=== PATIENT | female | born 1985 | race Caucasian/White ===

== ENCOUNTER 2022-06-08 08:45 | Outpatient (CLI) | payer OTHER, SELFPAY ==
[2022-06-08 11:58] LABS: AST(SGOT) 14 U/L (15-37); Alanine Aminotransfer ALT/SGPT 23 U/L (13-56); Albumin, Serum 3.7 g/dL (3.2-5.0); Alkaline Phosphatase 72 U/L (45-117); Anion Gap 8 (5-15); BUN 13 mg/dL (7-18); BUN/Creat Ratio 16.4 RATIO (10-20); Chloride 106 mmol/L (98-107); Creatinine, Serum 0.79 mg/dL (0.55-1.02); EST Glomerular Filtration Rate 87 mL/min (>60); Est Glom Filt Rate - Afr Amer 106 mL/min (>60); Globulin 3.8 g/dL (2.2-4.2); Glucose 124 mg/dL (74-106); Luteinizing Hormone 6.7 mIU/mL; Potassium 4.1 mmol/L (3.5-5.1); Protein, Total 7.5 g/dL (6.4-8.2); Sodium Level 140 mmol/L (136-145); Thyroid Stim Hormone (TSH) 0.71 uIU/mL (0.358-3.74)
== END 2022-06-08 23:59 | disposition home or self-care (01) ==
LOC: MTLAB 08:49
PROVIDERS: PCP Family Medicine; Referring Provider Family Medicine; Visit Provider Family Medicine
DX: N92.6 Irregular menstruation, unspecified (principal)
CPT/HCPCS: 36415; 80053; 82533; 82627; 83001; 83002; 84403; 84443; 82626

== ENCOUNTER → 2022-06-30 | Outpatient (CLI) | payer OTHER, SELFPAY ==
--- NOTE | 2022-06-30 11:16 | US_ITS ---
INDICATION: IRREGULAR PERIODS EXAMINATION: Ultrasound US Transvaginal Non-OB TECHNIQUE: Transvaginal (for optimal evaluation of the adnexa) pelvic ultrasound was performed. Grayscale, spectral waveform, and color flow Doppler evaluation of the adnexa. COMPARISON: None. FINDINGS: UTERUS: Anteverted. The uterus measures 7.4 x 4.0 x 3.1 cm. There is a possible anterior fibroid measuring 2.5 x 2.1 x 1.8 cm. The endometrial stripe measures 9.5 mm with mild heterogeneity. A lobulated masslike structure is noted in the cervical canal measuring 9 x 11 x 8 mm. RIGHT OVARY: 5.4 x 4.7 x 5.5 cm. There are cystic lesions measuring 2.8 x 3.1 x 2.2 cm with septations and 4.4 x 3.4 x 3.9 cm There is normal arterial inflow and venous outflow present in the right ovary. LEFT OVARY: 3.1 x 1.5 x 2.2 cm. Non-enlarged, normal echogenicity. There is normal arterial inflow and venous outflow present in the left ovary. FREE FLUID: None. US/Transvaginal Non- IMPRESSION: Possible anterior uterine fibroid. Right ovarian cystic lesions. Lobulated nodular structure at the central canal requiring further evaluation. Electronically Signed: Alvino Garcia DO at 22:57 EST Reading Location ID and State: [facility] / [place] Tel [phone], Service support ,
== END | disposition home or self-care (01) ==
LOC: US 11:13
PROVIDERS: PCP Family Medicine; Visit Provider Family Medicine
DX: N92.6 Irregular menstruation, unspecified (principal)
CPT/HCPCS: 76830

== ENCOUNTER → 2022-08-17 | Outpatient (CLI) | payer OTHER, SELFPAY ==
--- NOTE | 2022-08-17 | EMB_PTH ---
PATIENT: DIAN SAVAGE [facility] U#:[id number] AGE/SX: 37/F ROOM: RE08/17/[address]: Dr. Genevieve Lanier MD : 1985 BED: DIS: 08/17/2022 SPEC #: [id number] RECD: 08/17/22 14:49 STATUS: JACKIE REAmish #: [id number] DANUTA: 08/17/22 00:[address]: Genevieve Lanier DEPT: SURGICAL PATHOLOGY RECD BY: Philippe Dixon ENTERED: 08/18/22 09:56 SP TYPE: ENDOM BX/C FLORECITA DR: Dr. Thomas Long MD Tissues: A - Endometrium, NOS B - Endocervical Procedures: Surgery Specimen Level IV HEADER OPERATION: Endometrial biopsy, removal endocervical lesion PRE-OP DIAGNOSIS: Abnormal uterine bleeding, endocervical lesion TISSUE SUBMITTED: A - Endometrial tissue, B ? Endocervical lesion MICROSCOPIC DIAGNOSIS A. Endometrium, biopsy: Weakly proliferative lower uterine endometrium. B. Endocervical lesion, biopsy: Rare strips of benign superficial endocervix. See comment. AM:ralf 08/21/2022 COMMENT B. The specimen primarily consists of rare endocervical tissue. The majority of the specimen consists of mucoid material. Clinical correlation is suggested. MICROSCOPIC DESCRIPTION Slides are reviewed. GROSS DESCRIPTION A - Received in fixative is one container labeled with the patient's name and designated endometrial biopsy. The specimen consists of multiple irregular fragments of hemorrhagic soft tissue that in aggregate measure 2.5 x 0.2 x 0.1 cm. The specimen is totally submitted in one cassette. B - Received in fixative is one container labeled with the patient's name and designated endocervical lesion. The specimen consists of multiple irregular fragments of cline mucoid tissue mixed with polypoid tissue that in aggregate measure 2.5 x 1.5 x 0.2 cm. The specimen is totally submitted in one cassette. / SJ:ralf 08/18/2022 TC:5 CPT: 10113 x2
== END | disposition home or self-care (01) ==
PROVIDERS: PCP Family Medicine; Referring Provider Obstetrics & Gynecology; Visit Provider Obstetrics & Gynecology
DX: N93.9 Abnormal uterine and vaginal bleeding, unspecified (principal)
CPT/HCPCS: 88305

== ENCOUNTER 2022-09-12 11:25 | Day surgery (SDC) | payer OTHER, SELFPAY ==
[2022-09-12] VITALS (7 sets, daily range): BP systolic 120–131; BP diastolic 75–93; PULSE 64–82; RESP 16–18; TEMP 36.8–37.4; O2SAT 100; BMI 38.0
--- NOTE | 2022-09-12 | IMM_PTH ---
PATIENT: DIAN SAVAGE LOC: [facility] [place] U[place][id number] AGE/SX: 37/F ROOM: RE09/12/[address]: Dr. Genevieve Lanier MD : 1985 BED: DIS: 09/12/2022 SPEC #: [id number] RECD: 09/14/22 14:32 STATUS: JACKIE REAmish #: [id number] DANUTA: 09/12/22 00:[address]: Genevieve Lanier DEPT: IMMUNOHISTOCHEMISTRY RECD BY: Dyana Frank ENTERED: 09/14/22 14:32 SP TYPE: IMMUNO OTHR DR: Dr. Thomas Long MD Tissues: B - Uterine cervix, NOS Procedures: p16 (initial) KI-67 (add) PHYSICIAN & INSTITUTION [place] [id number] SPECIMEN INFORMATION: Tissue Source: B ? Cervical curettings Clinical Info: Abnormal ultrasound, cervical lesion Specimen Number: [id number] B2 CPT code: 66723, 19278 METHODOLOGY: Deparaffinized sections of prefer/formalin-fixed tissue or PAP/DQ stained slides are incubated with monoclonal/polyclonal antibodies/oligonucleotide probes. Localization is made via biotin free immunoperoxidase method. Appropriate controls are performed and reacted as expected. Results on target cell population are indicated in the following table: RESULTS: ANTIBODY / CLONE RESULT Block B2 P16 (E6H4) positive, rare cell Ki-67 (30-9) positive, low These tests were developed and their performance characteristics determined by [facility]. They may not have been cleared or approved by the U.S. Food and Drug Administration. The FDA has determined that such clearance or approval is not necessary. The above immunohistochemical/dualISH markers are ordered and reviewed by the Pathologist. INTERPRETATION: B. Cervical curettings: Focal HPV change suspected. AM:ralf 09/15/2022
--- NOTE | 2022-09-12 06:14 | PCM.HP.BLA ---
History and Physical Date of Admission: 09/12/22 Intake Vital Signs ? 08/17/2312:50 08/17/2312:51 Height 5 ft 4 in 5 ft 4 in Weight: 223 lb ? BMI 38.2 ? BP 117/69 ? Intake Visit Reasons:?COLPOSCOPY/EMB Chief Complaint: colposcopy Gradall Operator Required: No Is patient in pain?: No Allergies amoxicillin Allergy (Verified 08/17/22 13:51) otherPenicillins Allergy (Verified 08/17/22 13:51) Other Medications norethindrone (contraceptive) 0.35 mg tablet (Jencycla) 0.35 mg PO DAILY 07/17/22 [History Confirmed 08/17/22] Is last menstrual period known: No Post menopausal: No Patient : No : No PFSH PFSH Medical History?(Updated 08/20/22 @ 15:[address] Genevieve Lanier MD) Hx of LEEP (loop electrosurgical excision procedure) of cervix complicating Family History?(Updated 07/17/22 @ 10:08 by Rebeka Overton) Mother Diabetes Social History?(Updated 07/17/22 @ 10:09 by Rebeka Overton) current occupational status:? employed current occupation:? [employer]ified [employer] sexually active:? No Smoking Status:? Former smoker Tobacco: How many years used:? 13 alcohol intake:? current alcohol intake frequency: a few times a month substance use type:? does not use caffeine:? No seatbelt use:? always HPI COLPOSCOPY/EMB Details: DIAN SAVAGE is a 37 year old who presents for d and c hysterosocpy. she has a history of pcos and irreuglar menses, abnormal paps and previous leep.? on ultrasound she had an endocervical lesion seen that was unclear of origin.? she denies any pelvic pain or pressure. ROS Const Constitutional: Reports system reviewed and no additional complaints, except as documented; Denies chills, fever(s), weight gain or weight loss GI GI: Reports as per HPI; Denies abdominal pain, bloating, constipation, cramping, nausea or vomiting : Reports as per HPI; Denies urinary frequency, urinary incontinence, urinary urgency, vaginal discharge or vaginal dryness all other systems reviewed and negative Exam Const General: cooperative, healthy appearing, comfortable and well developed Orientation: alert [facility] Head: normal to inspection Resp Effort & Inspection: normal respiratory effort GI Inspection: normal to inspection and non-distended Palpation: soft, no hepatosplenomegaly and no guarding External Female Exam: normal external appearance and normal appearance of the urethra Urethra: normal appearance of the urethra Speculum Exam - Vagina: normal appearance of the vagina, normal vaginal discharge and no lesions Coding Level of Care Code Off vis,est,level 4 Diagnoses Abnormal ultrasound? R93.89 Ovarian cyst? N83.209 ASCUS with positive high risk HPV? CPT Codes Endometrial Biopsy (93652) Assessment and Plan Assessment and Plan (1) Abnormal ultrasound: ?Status:?Acute ?Comment: endocervical lesion- emb done, attempted to remove endocervicla polyp but unable to, recommend d and c hysteroscopy possible symphion for full evaluation (2) Ovarian cyst: ?Status:?Acute ?Comment: repeat US ordered in 6 weeks (3) ASCUS with positive high risk HPV: ?Status:?Acute ?Comment: colp, leep in past ? ? ? Orders: Orders Plan colposocpy not performed due to polyp removal attempted and unable, emb done and tissue sent. After discussing the patient's diagnosis and treatment plan options, patient wishes to proceed with surgical management.? I have discussed with the patient the risks, benefits, and alternatives of the procedure which include but are not limited to risks of anesthesia, bleeding, infection, possible damage to bowel, bladder, or surrounding vasculature which could lead to additional surgery to evaluate any complications.? Patient agrees to procedure and wishes to proceed.? ACOG/uptodate references given for additional information regarding procedure.?
[2022-09-12 12:10] LABS: Mean Corp Hgb Conc 34.1 g/dL (32-36); Mean Corpuscular Hgb 30.7 pg (27.0-32.0); Mean Corpuscular Volume 89.9 fL (81-99); Mean Platelet Vol. 10.1 fl (6.2-12.0); Platelet Count 347 K/mm3 (150-450); RBC Distribution Width SD 39.7 fl (35.1-43.9); Red Blood Count 4.56 M/mm3 (4.2-5.4)
[2022-09-12] MEDS: Lactated Ringers 1,000 ML 15 ML IV (12:10)
[2022-09-12 12:12] LABS: Internal QC Validated? YES +Cl - CLEAR BKGD; Pregnancy, Urine Negative Negative
--- NOTE | 2022-09-12 13:10 | EMB_PTH ---
PATIENT: DIAN SAVAGE LOC: [facility] [place] U#:[id number] AGE/SX: 37/F ROOM: RE09/12/[address]: Dr. Genevieve Lanier MD : 1985 BED: DIS: 09/12/2022 SPEC #: [id number] RECD: 09/12/22 16:38 STATUS: JACKIE VILLEGASmAish #: [id number] DANUTA: 09/12/22 13:[address]: Genevieve Lanier DEPT: SURGICAL PATHOLOGY RECD BY: Nitin Laughlin ENTERED: 09/13/22 07:49 SP TYPE: ENDOM BX/C FLORECITA DR: Dr. Thomas Long MD Tissues: A - Endometrium, NOS B - Uterine cervix, NOS Procedures: Surgery Specimen Level IV HEADER OPERATION: Hysteroscopy, D & C Symphion PRE-OP DIAGNOSIS: Abnormal ultrasound, cervical lesion TISSUE SUBMITTED: A ? Endometrial shavings, B ? Cervical curettings MICROSCOPIC DIAGNOSIS A. Endometrium, shavings: Transition endometrium. Mild chronic endometritis. Benign fragments of myometrial tissue. B. Cervix, curettings: Fragments of benign endocervix, ectocervix, detached squamous epithelial cells and rare fragments of benign lower uterine endometrium. Focal changes suspicious for HPV cytopathic effect. See comment. AM:ralf 09/14/2022 COMMENT B. Results from immunohistochemistry ([id number]) for surrogate HPV marker (p16) will be reported separately. MICROSCOPIC DESCRIPTION Slides are reviewed. GROSS DESCRIPTION A - Received in fixative is one container labeled with the patient's name and designated endometrial shavings. The specimen consists of multiple irregular fragments of cline soft tissue that in aggregate measure 4.0 x 3.0 x 0.2 cm. The specimen is totally submitted in two cassettes. B - Received in fixative is one container labeled with the patient's name and designated cervical curettings. The specimen consists of a piece of cline, indurated tissue measuring 1.3 x 0.6 x 0.5 cm. This piece is bisected. Also present in the container are multiple pieces of hemorrhagic mucoid tissue measuring in aggregate 5.0 x 3.0 x 0.2 cm. The entire specimen is submitted in three cassettes as follows: 1 ? cline, indurated piece of tissue, 2 & 3 ? rest of the specimen. / KRISTIE:ralf 09/13/2022 TC:3 CPT: 46390 x2
[2022-09-12] MEDS: Lidocaine 1% (30 ml sdv) 30 ML Vial (15:58)
[2022-09-12] MEDS: FERRIC SUBSULFATE 8 GM SOLN (16:11)
--- NOTE | 2022-09-12 16:21 | PCM.OPRPT ---
Problems Associated Problem List Diagnoses (1) Abnormal ultrasound: (2) Polycystic ovarian syndrome: Report of Operation Date of Procedure: 09/12/22 Pre-Operative Diagnosis: see problem list Post-Operative Diagnosis: same Surgery/Procedure Performed:: D&C hysteroscopy polypectomy using symphion Description of Surgical Findings:: endocervical lesion thickened polypoid lining Surgeon: Genevieve Lanier quarantine inspector: None Type of Anesthesia: Local MAC Special Medications: none Specimen's removed: EMC, polyp of cervix Drains: none Estimated Blood Loss (mL): 50 Fluids Replaced: crystalloid Description of Procedure: Patient was prepped and draped in a normal sterile fashion under MAC anesthesia. A weighted speculum was placed in the vagina and the anterior lip of the cervix was grasped with a single-tooth tenaculum. A paracervical block was placed with 1% lidocaine. Cervix was progressively dilated to allow passage of a 5 mm hysteroscope. The lining was fully visualized and noted to have thickened polypoid lining and endocervical lesion . Uterine sounded to 8 cm. Using the symphion device, lining was samnpled and direct visual d and c done without complications, and all specimens were sent to pathology. endocervical lesion cut off at base and sent to path, cauterized and monsels paste applied All instruments were removed from the vagina and excellent hemostasis was noted. Patient was awoken and taken to recovery in stable condition. Grafts/Implants Used: none Complications none Admit VTE Documentation VTE Present on Admission: No VTE Mechan Device Prophylaxis: SCD's Multi Select Codes Urinary/Genital Urinary/Genital CPT Codes: 24158 Hysteroscopy,EMC, Polypectomy
--- NOTE | 2022-09-12 16:24 | DCINST_ITS ---
Discharge Instructions Procedure D&C Diet Discharge Diet: No restrictions Activity Discharge Activity: Return to Normal Activity, May Shower and May Take a Tub Bath (after 1 week) May resume sexual activity in: 1-2 weeks Weight Bearing Status: Weight bearing as tolerated Lifting Restrictions: none Dressing / Incision Call your doctor if you observe: Fever of 101 or Higher, Using more than 1 pad per hour, Shortness of breath and Uncontrolled pain Follow Up Care Please Follow Up With: Genevieve Lanier MD When: Call [phone] to schedule appointment. Test Results: Test results from this visit will be discussed in further detail at your follow- up appointment, if applicable. Discharge Plan Admission Attending Provider: Genevieve Lanier Primary Care Provider: Yomi Long Discharge Orders/Prescriptions Prescriptions: No Action norethindrone (contraceptive) [Jencycla] 0.35 mg tablet 0.35 mg PO DAILY Referrals / Follow Up: Yomi Long MD [Primary Care Provider] - Disposition Disposition (needs filled in before D/C Order can be placed): Home, Self Care
== END 2022-09-12 17:35 | disposition home or self-care (01) ==
LOC: SDC 11:26 → AC 11:27
PROVIDERS: PCP Family Medicine; Referring Provider Obstetrics & Gynecology; Visit Provider Obstetrics & Gynecology
PROC: 0UB98ZZ Excision of Uterus, Via Natural or Artificial Opening Endoscopic (ICD-10-PCS; CPT 58558; principal; 2022-09-12 12:55)
DX: E28.2 Polycystic ovarian syndrome (principal); Z87.891 Personal history of nicotine dependence; F41.9 Anxiety disorder, unspecified; F32.A Depression, unspecified; G47.30 Sleep apnea, unspecified; N80.9 Endometriosis, unspecified; R93.89 Abnormal findings on diagnostic imaging of other specified body structures; N83.209 Unspecified ovarian cyst, unspecified side; R87.610 Atypical squamous cells of undetermined significance on cytologic smear of cervix (ASC-US)
CPT/HCPCS: 58558; 00952; 81025; 85027; 86850; 86900; 86901; 88305; 88341; 88342; J7120; J2405

== ENCOUNTER → 2022-09-12 | Outpatient (CLI) | payer OTHER, SELFPAY ==
--- NOTE | 2022-09-12 10:47 | US_ITS ---
STUDY: ULTRASOUND OF THE FEMALE PELVIS - COMPLETE REASON FOR EXAM: Female, 37 years old. Pelvic pain -- STAT surgery this afternoon LMP: September 04, 2022. TECHNIQUE: Transvaginal TECHNICAL QUALITY: Adequate. COMPARISON: Comparison is made with prior study dated June 30, 2022. FINDINGS: The uterus is anteverted and is in a midline position. The uterus measures 7.3 cm x 4.3 cm x 2.9 cm. Normal uterine cervix. The endometrium measures 6 mm in thickness, and is heterogeneous (striated). Findings suggestive of a 2.1 cm x 1.6 cm x 0.9 cm fibroid in the anterior uterine body. There is a 2.4 cm by 1 cm x 1 cm masslike structure in the cervical canal. There is no demonstrated myometrial mass. I.U.D. - The patient does not have an I.U.D. The right ovary is visualized. The right ovary measures 3.7 cm x 2.3 cm x 2.8 cm. A dominant follicle is seen measuring 1.5 cm x 1.4 cm x 1.4 cm. There is no visualized right adnexal mass or complex lesion. There is normal arterial and normal venous vascularity. The left ovary is visualized. The left ovary measures 2.7 cm x 2.1 cm x 2.4 cm. Follicles are seen within the ovary. There is no visualized left adnexal mass or complex lesion. There is normal arterial and normal venous vascularity. There is no fluid in the cul-de-sac. US/Transvaginal Non- IMPRESSION: 2.4 cm x 1 cm x 1 cm masslike structure in the cervical canal. Findings suggestive of a 2.1 cm x 1.6 cm x 0.9 cm fibroid in the anterior uterine body. Electronically Signed: Amadou Jennings MD at 12:20 EDT ,
== END | disposition home or self-care (01) ==
LOC: OPUS 10:46
PROVIDERS: PCP Family Medicine; Referring Provider Obstetrics & Gynecology; Visit Provider Obstetrics & Gynecology
DX: E28.2 Polycystic ovarian syndrome (principal); R93.89 Abnormal findings on diagnostic imaging of other specified body structures; N83.209 Unspecified ovarian cyst, unspecified side
CPT/HCPCS: 76830; 93976

== ENCOUNTER 2022-10-23 09:03 | Outpatient (RCR) | payer SELFPAY | END 2022-10-27 23:59 | LOC: NS 09:03 | PROVIDERS: PCP Family Medicine; Referring Provider Obstetrics & Gynecology; Visit Provider Obstetrics & Gynecology | DX: Z71.3 Dietary counseling and surveillance (principal); E66.9 Obesity, unspecified; Z68.38 Body mass index [BMI] 38.0-38.9, adult; E28.2 Polycystic ovarian syndrome | CPT/HCPCS: 97802 ==

== ENCOUNTER 2022-11-29 08:58 | Outpatient (RCR) | payer SELFPAY | END 2022-12-28 23:59 | LOC: NS 08:58 | PROVIDERS: PCP Family Medicine; Referring Provider Obstetrics & Gynecology; Visit Provider Obstetrics & Gynecology | DX: Z71.3 Dietary counseling and surveillance (principal); E66.9 Obesity, unspecified; Z68.38 Body mass index [BMI] 38.0-38.9, adult; E28.2 Polycystic ovarian syndrome | CPT/HCPCS: 97803 ==

== ENCOUNTER → 2022-12-11 | Outpatient (CLI) | payer OTHER, SELFPAY | END | disposition home or self-care (01) | LOC: PAVLAB 15:07 | PROVIDERS: PCP Family Medicine; Referring Provider Obstetrics & Gynecology; Visit Provider Obstetrics & Gynecology | DX: Z13.21 Encounter for screening for nutritional disorder (principal) | CPT/HCPCS: 36415; 82306 ==